=== PATIENT | female | born 1940 | race Caucasian/White ===

== ENCOUNTER → 2018-07-07 | Outpatient (REF) | payer MEDICARE ==
[2018-07-07 12:25] LABS: APPEARANCE, URINE CLEAR (CLEAR); BACTERIA, URINE AUTO 1+ (NEGATIVE); BILIRUBIN, URINE AUTO NEGATIVE (NEGATIVE); BLOOD, URINE BLOOD 2+ (NEGATIVE); COLOR, URINE YELLOW (YELLOW); GLUCOSE, URINE (UA) AUTO NEGATIVE (NEGATIVE); KETONE, URINE AUTO NEGATIVE (NEGATIVE); LEUKOCYTE ESTERASE, URINE AUTO 3+ (NEGATIVE); NITRITE, URINE AUTO NEGATIVE (NEGATIVE); PROTEIN, URINE AUTO NEGATIVE (NEGATIVE); RBC, URINE AUTO 19 /HPF (0-3); SPECIFIC GRAVITY URINE AUTO 1.008 (1.002-1.035); SQUAMOUS EPITHELIAL CELL UR AU 0 /HPF (0-6); UROBILINOGEN, URINE AUTO 0.2 mg/dL (0.0-2.0); WBC, URINE AUTO 32 /HPF (0-3)
== END ==
LOC: M SMT 11:44
DX: N39.0 Urinary tract infection, site not specified (principal)
CPT/HCPCS: 81001

== ENCOUNTER → 2018-07-11 | Outpatient (REF) | payer MEDICARE ==
[2018-07-11 13:25] LABS: APPEARANCE, URINE HAZY (CLEAR); BACTERIA, URINE AUTO NEGATIVE (NEGATIVE); BILIRUBIN, URINE AUTO NEGATIVE (NEGATIVE); BLOOD, URINE BLOOD 1+ (NEGATIVE); COLOR, URINE YELLOW (YELLOW); GLUCOSE, URINE (UA) AUTO NEGATIVE (NEGATIVE); KETONE, URINE AUTO NEGATIVE (NEGATIVE); LEUKOCYTE ESTERASE, URINE AUTO 2+ (NEGATIVE); NITRITE, URINE AUTO NEGATIVE (NEGATIVE); PROTEIN, URINE AUTO NEGATIVE (NEGATIVE); RBC, URINE AUTO 6 /HPF (0-3); SPECIFIC GRAVITY URINE AUTO 1.006 (1.002-1.035); SQUAMOUS EPITHELIAL CELL UR AU 0 /HPF (0-6); UROBILINOGEN, URINE AUTO 0.2 mg/dL (0.0-2.0); WBC, URINE AUTO 38 /HPF (0-3)
== END ==
LOC: M SMT 12:58
DX: N39.0 Urinary tract infection, site not specified (principal)
CPT/HCPCS: 81001

== ENCOUNTER → 2020-12-18 | Outpatient (CLI) | payer MEDICARE ==
--- NOTE | 2020-12-18 15:23 | REP ---
INDICATION: POSTERIOR KNEE SWELLING COMPARISON: None. TECHNIQUE: Real time compression and duplex Doppler interrogation of the right lower extremity deep venous system is performed. FINDINGS: The right common femoral, superficial femoral and popliteal veins are fully compressible with transducer pressure and demonstrate normal spontaneous and phasic flow, without evidence of deep venous thrombosis. There is a cyst in the medial popliteal fossa measuring 6.0 x 1.7 x 2.5 cm. IMPRESSION: No evidence of deep venous thrombosis of the right lower extremity femoral popliteal venous system. There is a cyst in the medial popliteal fossa measuring 6.0 x 1.7 x 2.5 cm. <Electronically signed by Timoteo Bhatt > 12/18/20 [id number]
== END ==
LOC: M RAD 14:45
PROVIDERS: ATTEND Physician Assistant Medical
DX: M71.22 Synovial cyst of popliteal space [Baker], left knee (principal); M25.462 Effusion, left knee; M79.89 Other specified soft tissue disorders

== ENCOUNTER 2021-05-31 17:05 | Inpatient (IN) | payer MEDICARE ==
[~2021-05-31] VITALS: Ht 165.1 cm; Wt 65.3 kg
[2021-05-31] MEDS ORDERED: MORPHINE 2 MG/ML 1ML VIAL (J2270) IV ONE (17:15)
[2021-05-31] MEDS ORDERED: ONDANSETRON 4MG/2ML VIAL IV ONE (17:15)
[2021-05-31] MEDS ORDERED: BOOSTRIX/ADACEL VACCINE (DIPHTH/PERTUSS/ACELL/TETANUS) 0.5ML SYR IM ONE (17:20)
[2021-05-31] MEDS ORDERED: MORPHINE 4 MG/ML 1ML VIAL/SYRINGE (J2270) IV ONE (18:05)
[2021-05-31 18:20] LABS: BASO % 0.3 % (0.0-1.0); EOS # 0.1 10^3/uL (0.0-0.5); EOS % 1.2 % (0.0-3.0); HEMATOCRIT 43.8 % (36.0-47.0); HEMOGLOBIN 14.1 g/dl (12.0-15.5); LYMPH # 1.2 10^3/uL (1.5-5.0); LYMPH % 9.8 % (24.0-44.0); MEAN CORPUSCULAR HEMOGLOBIN 29.6 pg (27.0-33.0); MEAN CORPUSCULAR HGB CONC 32.2 g/dl (32.0-36.5); MEAN CORPUSCULAR VOLUME 91.8 fl (80.0-96.0); MONO # 0.5 10^3/uL (0.0-0.8); MONO % 4.6 % (2.0-8.0); NEUTROPHILS # 9.9 10^3/uL (1.5-8.5); NEUTROPHILS % 83.6 % (36.0-66.0); PLATELET COUNT, AUTOMATED 234 10^3/uL (150-450); RED BLOOD COUNT 4.77 10^6/uL (4.00-5.40); WHITE BLOOD COUNT 11.8 10^3/uL (4.0-10.0)
[2021-05-31 18:36] LABS: INR 0.82; PROTHROMBIN TIME 11.7 SECONDS (12.7-14.5)
[2021-05-31 18:37] LABS: PARTIAL THROMBOPLASTIN TIME 27.1 SECONDS (25.9-37.0)
[2021-05-31 18:46] LABS: ALBUMIN 3.7 GM/DL (3.2-5.2); ALT/SGPT 22 U/L (12-78); BILIRUBIN,DIRECT < 0.1 MG/DL (0.0-0.2); BILIRUBIN,TOTAL 0.2 MG/DL (0.2-1.0); BLOOD UREA NITROGEN 19 MG/DL (7-18); CALCIUM LEVEL 8.8 MG/DL (8.8-10.2); CARBON DIOXIDE LEVEL 31 MEQ/L (21-32); CHLORIDE LEVEL 103 MEQ/L (98-107); CREATININE FOR GFR 0.86 MG/DL (0.55-1.30); GLOMERULAR FILTRATION RATE > 60.0 (>39); GLUCOSE, FASTING 117 MG/DL (70-100); POTASSIUM SERUM 3.9 MEQ/L (3.5-5.1); SODIUM LEVEL 140 MEQ/L (136-145); TOTAL PROTEIN 7.1 GM/DL (6.4-8.2)
--- NOTE | 2021-05-31 18:46 | REPVR ---
PROCEDURE INFORMATION: Exam: XR Chest Exam date and time: 05/31/2021 5:56 PM Age: 80 years old Clinical indication: Other: Fall TECHNIQUE: Imaging protocol: XR of the chest. Views: 1 view. COMPARISON: CR Chest, 2 view PA, Lat 12/04/2014 9:54 AM FINDINGS: Lungs: The lungs are unchanged. There are no interval infiltrates. Pleural spaces: Unremarkable. No pleural effusion. No pneumothorax. Heart/Mediastinum: The heart and mediastinum are unchanged. Bones/joints: Unremarkable. IMPRESSION: Negative chest without change from 12/04/2014. Electronically signed by: Jeff Sims On 05/31/2021 18:46:08 PM
--- NOTE | 2021-05-31 18:50 | REPVR ---
PROCEDURE INFORMATION: Exam: XR Right Hip Exam date and time: 05/31/2021 5:56 PM Age: 80 years old Clinical indication: Other: Right hip pain; Additional info: Fall; Right hip pain TECHNIQUE: Imaging protocol: XR Right hip. Views: 2 or 3 views hip with pelvis when performed. COMPARISON: No relevant prior studies available. FINDINGS: Bones/joints: Oblique subtrochanteric fracture of the proximal right femur with a fracture line extending from the cephalad aspect of the lesser trochanter extending laterally and obliquely toward the proximal femoral diaphysis. There is medial displacement of the distal fragment approximately 1/3 the width of the bone and mild varus angulation. The bony ring of the pelvis is intact. Mild degenerative disc narrowing and spurring is noted in the lower lumbar spine. Soft tissues: Unremarkable. IMPRESSION: 1. Oblique subtrochanteric fracture of the right hip with mild displacement and varus angulation. 2. 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 3. Negative pelvis. Electronically signed by: Jeff Sims On 05/31/2021 18:50:53 PM
[2021-05-31 19:29] LABS: RSV AMPLIFICATION NEGATIVE (NEGATIVE)
--- NOTE | 2021-05-31 19:51 | REPVR ---
PROCEDURE INFORMATION: Exam: XR Right Femur Exam date and time: 05/31/2021 7:27 PM Age: 80 years old Clinical indication: Pain; Hip; Right; Additional info: R hip #, assess distal femur for preop planning TECHNIQUE: Imaging protocol: XR Right femur. Views: 2 views. COMPARISON: CR Hip,AP,LAT to include Pelvis 05/31/2021 5:11 PM FINDINGS: Bones/joints: Joint space narrowing of the knee. The proximal femur is not included. No fractures in the mid and distal femur. Soft tissues: Unremarkable. IMPRESSION: 1. Negative mid and distal femur. The proximal femur is not included. 2. Mild degenerative narrowing of the right knee. Electronically signed by: Jeff Sims On 05/31/2021 19:51:20 PM
[2021-05-31] MEDS ORDERED: MORPHINE 4 MG/ML 1ML VIAL/SYRINGE (J2270) IV PRN (19:55)
[2021-05-31] MEDS ORDERED: ONDANSETRON 4MG/2ML VIAL IV PRN (20:00)
--- NOTE | 2021-05-31 20:00 | HPEPDOC ---
[facility] Medical History & Physical Date of Admission May 31, 2021 Date of Service: May 31, 2021 Primary Care Physician: CHRISTINE ARREOLA M.D. Attending Physician: TALIB DUQUE MD History and Physical CHIEF COMPLAINT: [ hip pain] HISTORY OF PRESENT ILLNESS: [This is a 80 y/o female with no significant pmh who presents to our ED on 05/31 with after suffering a fall and subsequently dev eloping severe right hip pain and inability to ambulate. Patient states that she was on her way out to the barn to tend to her animals, but when she tried to open her barn door, she happened to lose her grasp on the rope attached to the door and slipped and fell onto her bottom on the wet ground. Patient immediately began to experience pain after this and was brought to the ER. As of my exam, patient tells me that her pain is well controlled after a few doses of pain meds and with not moving her right leg. Patient, at the time of my exam, denies any recent illness, fevers, chills, chest pain, dyspnea, cough, abd pain, striking her head, syncope, abd pain, n/v/d/c, pedal edema. Patient found to have acute fracture of proximal right femur on imaging in the ED] PAST MEDICAL HISTORY: 1. [Reviewed - none PAST SURGICAL HISTORY: 1. [Reviewed - none SOCIAL HISTORY: Tobacco use:[Denies] ETOH: [Denies] Illicit drug use: [Denies] FAMILY HISTORY: Reviewed - none pertinent ALLERGIES: Please see below. REVIEW OF SYSTEMS: CONSTITUTIONAL: [Denies fevers, chills]. HEENT: [Denies uri type sx]. CARDIOVASCULAR: [Denies chest pain, palpitations]. RESPIRATORY: [Denies sob, wheezing]. GASTROINTESTINAL: [Denies abd pain, n/v/d/c]. GENITOURINARY: [Mouna dysuria]. SKIN: [Denies rash]. MUSCULOSKELETAL: [See HPI]. NEUROLOGICAL: [Denies syncope, paresthesias]. ENDOCRINE: [Denies hx of DM]. HEMATOLOGIC/LYMPHATIC: [Denies hx of vte]. HOME MEDICATIONS: Please see below. PHYSICAL EXAMINATION: VITAL SIGNS: Please see below. GENERAL APPEARANCE: [This is a pleasant 80 y/o female who is alert and oriented to all questioning. She does not appear to be in any acute distress]. HEENT: [No mass or lesion. EOMI. No scleral icterus. Nares patent. oral mucosa moist]. CARDIOVASCULAR: [Regular rate, rhythm. No murmurs, rubs, gallops]. LUNGS: [Good air flow b/l. No wheezing, rales, rhonchi]. ABDOMEN: [Soft, nontender]. MUSCULOSKELETAL: [No joint deformity noted. Hip ROM not assessed d/t pain]. EXTREMITIES: [No pedal edema appreciated. No overlying skin changes. Pulses intact]. NEUROLOGICAL: [Sensation intact. Speech clear. A+Ox3. No focal deficits]. PSYCHIATRIC: [Mood and affect appear appropriate]. LABORATORY DATA: See below. IMAGING: [CXR: FINDINGS: Lungs: The lungs are unchanged. There are no interval infiltrates. Pleural spaces: Unremarkable. No pleural effusion. No pneumothorax. Heart/Mediastinum: The heart and mediastinum are unchanged. Bones/joints: Unremarkable. IMPRESSION: Negative chest without change from 12/04/2014. Hip/pelvis XR: FINDINGS: Bones/joints: Oblique subtrochanteric fracture of the proximal right femur with a fracture line extending from the cephalad aspect of the lesser trochanter extending laterally and obliquely toward the proximal femoral diaphysis. There is medial displacement of the distal fragment approximately 1/3 the width of the bone and mild varus angulation. The bony ring of the pelvis is intact. Mild degenerative disc narrowing and spurring is noted in the lower lumbar spine. Soft tissues: Unremarkable. IMPRESSION: 1. Oblique subtrochanteric fracture of the right hip with mild displacement and varus angulation. 2. 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 3. Negative pelvis. Femur XR: FINDINGS: Bones/joints: Joint space narrowing of the knee. The proximal femur is not included. No fractures in the mid and distal femur. Soft tissues: Unremarkable. IMPRESSION: 1. Negative mid and distal femur. The proximal femur is not included. 2. Mild degenerative narrowing of the right knee. ] MICROBIOLOGY: Please see below. ASSESSMENT: [This is a 80 y/o female with no significant pmh who presents to our ED on 05/31 with after suffering a fall that was mechanical in nature and subsequently developing severe right hip pain and inability to ambulate. Patient found to have acute fracture of proximal right femur on imaging in the ED]. . PLAN: 1. [Right hip fx - Dr. Kennedy, orthopedics, has been consulted by ED provider and plans to take patient to OR in the am - NPO after midnight - will give ivf starting at this time - Pain control with toradol, morphine - nausea control with zofran - Bedrest - Admit to med surg for tx DVT prophylaxis - mechanical pre-op]. Vital Signs Vital Signs Date Time Temp Pulse Resp B/P (MAP) Pulse Ox O2 Delivery O2 Flow Rate FiO2 05/31/21 18:14 18 98 Room Air 05/31/21 18:05 53 05/31/21 18:03 213/84 (127) 05/31/21 17:33 98.3 Laboratory Data Labs 24H Laboratory Tests 2 05/31/21 18:08: Immature Granulocyte % (Auto) 0.5, Neutrophils (%) (Auto) 83.6H, Lymphocytes (%) (Auto) 9.8L, Monocytes (%) (Auto) 4.6, Eosinophils (%) (Auto) 1.2, Basophils (%) (Auto) 0.3, Neutrophils # (Auto) 9.9H, Lymphocytes # (Auto) 1.2L, Monocytes # (Auto) 0.5, Eosinophils # (Auto) 0.1, Basophils # (Auto) 0.0, Nucleated Red Blood Cells % (auto) 0.0, Prothrombin Time 11.7L, Prothromb Time International Ratio 0.82, Activated Partial Thromboplast Time 27.1, Anion Gap 6L, Glomerular Filtration Rate > 60.0, Calcium Level 8.8, Total Bilirubin 0.2, Direct Bilirubin < 0.1, Aspartate Amino Transf (AST/SGOT) 18, Alanine Aminotransferase (ALT/SGPT) 22, Alkaline Phosphatase 74, Total Protein 7.1, Albumin 3.7, Albumin/Globulin Ratio 1.1L, Coronavirus (COVID-19)(PCR) NEGATIVE, Influenza Type A (RT-PCR) NEGATIVE, Influenza Type B (RT-PCR) NEGATIVE, Respiratory Syncytial Virus (PCR) NEGATIVE CBC/BMP Laboratory Tests 05/31/21 18:08 Home Medications Scheduled Ascorbic Acid (Vitamin C) 1,000 Mg Tablet, 1,000 MG PO DAILY Calcium Carbonate (Calcium) 500 Mg Tablet, 500 MG PO DAILY Cholecalciferol (Vitamin D3) (Vitamin D3) 25 Mcg Capsule, 25 MCG PO DAILY Ubidecarenone (Co Q-10) 100 Mg Capsule, 100 MG PO DAILY Vitamin E (Dl,Tocopheryl Acet) (Vitamin E) 22.5 Mg/1 Ml Drops, 22.5 MG PO DAILY Allergies Coded Allergies: No Known Allergies (Unverified , 12/07/14) A-FIB/CHADSVASC A-FIB History Current/History of A-Fib/PAF?: No BAIRON MORATAYA May 31, 2021 20:00 TALIB DUQUE MD Jun 03, 2021 01:02
[2021-05-31] MEDS ORDERED: D3 H10002 PO (20:06)
[2021-05-31] MEDS ORDERED: COQ1100C5 PO (20:06)
[2021-05-31] MEDS ORDERED: ASCO100013 PO (20:06)
[2021-05-31] MEDS ORDERED: OYST1TAB PO (20:06)
[2021-05-31] MEDS ORDERED: [UNRECOGNIZED DRUG - CODE] PO (20:06)
[2021-05-31] MEDS ORDERED: HOME MED LIST COMPLETE! XX SCH (20:10)
[2021-05-31] MEDS: KETOROLAC 30 MG/ML 1ML VIAL IV PRN (20:36)
[2021-05-31 22:00] VITALS: BP 147/63
[2021-06-01] MEDS: NS 1,000 ML IV SCH ×2 (00:16→10:24)
[2021-06-01] MEDS: KETOROLAC 30 MG/ML 1ML VIAL IV PRN (05:42)
[2021-06-01 06:00] VITALS: BP 145/61
[2021-06-01 08:28] LABS: HEMATOCRIT 36.8 % (36.0-47.0); MEAN CORPUSCULAR HEMOGLOBIN 29.2 pg (27.0-33.0); MEAN CORPUSCULAR HGB CONC 31.8 g/dl (32.0-36.5); MEAN CORPUSCULAR VOLUME 91.8 fl (80.0-96.0); PLATELET COUNT, AUTOMATED 167 10^3/uL (150-450); RED BLOOD COUNT 4.01 10^6/uL (4.00-5.40); WHITE BLOOD COUNT 7.8 10^3/uL (4.0-10.0)
[2021-06-01 08:30] LABS: HEMOGLOBIN 11.7 g/dl (12.0-15.5)
[2021-06-01 08:51] LABS: BLOOD UREA NITROGEN 21 MG/DL (7-18); CALCIUM LEVEL 8.1 MG/DL (8.8-10.2); CARBON DIOXIDE LEVEL 28 MEQ/L (21-32); CHLORIDE LEVEL 107 MEQ/L (98-107); CREATININE FOR GFR 0.79 MG/DL (0.55-1.30); GLOMERULAR FILTRATION RATE > 60.0 (>39); GLUCOSE, FASTING 105 MG/DL (70-100); POTASSIUM SERUM 4.2 MEQ/L (3.5-5.1); SODIUM LEVEL 141 MEQ/L (136-145)
[2021-06-01] MEDS ORDERED: KETOROLAC 30 MG/ML 1ML VIAL IV PRN (09:50)
[2021-06-01] MEDS ORDERED: HEPARIN SOD (PORCINE) 5000UNITS/ML 1ML VIAL/SYRINGE SQ SCH (14:00)
--- NOTE | 2021-06-01 17:09 | ECGEPIP ---
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
--- NOTE | 2021-06-01 17:44 | CR.PDOC ---
General Date of Consultation: Jun 01, 2021 Consultation REASON FOR CONSULTATION/CHIEF COMPLAINT: Right hip CHIEF COMPLAINT: 80 y/o F presents to the ED after a fall, c/o right hip pain History gleaned from admission H&P as well as speaking with the patient HISTORY OF PRESENT ILLNESS: This is a 80 y/o female with no significant pmh who presents to our ED on 05/31 with after suffering a fall and subsequently developing severe right hip pain and inability to ambulate. Patient was opening a barn door when the rope broke and she fell onto her side quite heavily. patient immediately began to experience pain after this and was brought to the ER. Patient found to have acute fracture of proximal right femur on imaging in the ED PAST MEDICAL HISTORY: 1. [Reviewed - none PAST SURGICAL HISTORY: 1. [Reviewed - none SOCIAL HISTORY: Tobacco use:[Denies] ETOH: [Denies] Illicit drug use: [Denies] FAMILY HISTORY: Reviewed - none pertinent ALLERGIES: Please see below. REVIEW OF SYSTEMS: Patient denies any issues aside from those mentioned in the H&P HOME MEDICATIONS: Please see below. PHYSICAL EXAMINATION: VITAL SIGNS: Please see below. GENERAL APPEARANCE: Alert and oriented no acute distress CARDIOVASCULAR: Palpable posterior tibial pulse on the right EXTREMITIES: Right leg shortened and externally rotated. NEUROLOGICAL: Sensation grossly intact to all distributions right foot and ankle LABORATORY DATA: See below. X-ray: X-ray imaging was independently reviewed by myself today. This demonstrated an oblique subtrochanteric fracture to the right proximal femur with displacement. ASSESSMENT: Relatively healthy 80-year-old female with right hip fracture secondary to traumatic fall. Patient has been consented for open reduction internal fixation with the risks and benefits being documented and discussed with the patient. Plan for open reduction internal fixation today if possible. Patient is n.p.o. Vital Signs/I&O Vital Signs Date Time Temp Pulse Resp B/P (MAP) Pulse Ox O2 Delivery O2 Flow Rate FiO2 06/01/21 06:00 98.3 76 19 145/61 (89) 96 Room Air I&O- Last 24 Hours up to 6 AM 06/01/21 06:00 Intake Total 120 ml Output Total 200 ml Balance -80 ml Laboratory Data Labs 24H Laboratory Tests 2 05/31/21 18:08: Immature Granulocyte % (Auto) 0.5, Neutrophils (%) (Auto) 83.6H, Lymphocytes (%) (Auto) 9.8L, Monocytes (%) (Auto) 4.6, Eosinophils (%) (Auto) 1.2, Basophils (%) (Auto) 0.3, Neutrophils # (Auto) 9.9H, Lymphocytes # (Auto) 1.2L, Monocytes # (Auto) 0.5, Eosinophils # (Auto) 0.1, Basophils # (Auto) 0.0, Nucleated Red Blood Cells % (auto) 0.0, Prothrombin Time 11.7L, Prothromb Time International Ratio 0.82, Activated Partial Thromboplast Time 27.1, Anion Gap 6L, Glomerular Filtration Rate > 60.0, Calcium Level 8.8, Total Bilirubin 0.2, Direct Bilirubin < 0.1, Aspartate Amino Transf (AST/SGOT) 18, Alanine Aminotransferase (ALT/SGPT) 22, Alkaline Phosphatase 74, Total Protein 7.1, Albumin 3.7, Albumin/Globulin Ratio 1.1L, Coronavirus (COVID-19)(PCR) NEGATIVE, Influenza Type A (RT-PCR) NEGATIVE, Influenza Type B (RT-PCR) NEGATIVE, Respiratory S yncytial Virus (PCR) NEGATIVE 06/01/21 07:57: Nucleated Red Blood Cells % (auto) 0.0, Anion Gap 6L, Glomerular Filtration Rate > 60.0, Calcium Level 8.1L CBC/BMP Laboratory Tests 05/31/21 18:08 06/01/21 07:57 Allergies Coded Allergies: No Known Allergies (Unverified , 12/07/14) Home Medications Scheduled Ascorbic Acid (Vitamin C) 1,000 Mg Tablet, 1,000 MG PO DAILY, (Reported) Calcium Carbonate (Calcium) 500 Mg Tablet, 500 MG PO DAILY, (Reported) Cholecalciferol (Vitamin D3) (Vitamin D3) 25 Mcg Capsule, 25 MCG PO DAILY, (Reported) Ubidecarenone (Co Q-10) 100 Mg Capsule, 100 MG PO DAILY, (Reported) Vitamin E (Dl,Tocopheryl Acet) (Vitamin E) 22.5 Mg/1 Ml Drops, 22.5 MG PO DAILY, (Reported) NORTH SIFUENTES MD Jun 01, 2021 17:43
[2021-06-01] MEDS ORDERED: ACETAMINOPHEN TAB 650MG DOSE (2X325MG) PO ONE (18:10)
[2021-06-01 18:56] VITALS: BP 169/74
[2021-06-01] MEDS ORDERED: TRANEXAMIC ACID 100 MG/ML 10ML VIAL As Ordered ONE (20:06)
[2021-06-01] MEDS ORDERED: BUPIVACAINE/EPIN 0.5% 30 ML VIAL As Ordered ONE (20:06)
[2021-06-01] MEDS ORDERED: propofoL 200 MG/20 ML VIAL As Ordered ONE (20:09)
[2021-06-01] MEDS ORDERED: KETAMINE HCL 200 MG/20 ML VIAL As Ordered ONE (20:09)
[2021-06-01] MEDS ORDERED: LIDOCAINE 2% 100MG/5ML SDV (FOR ANES.) As Ordered ONE (20:09)
[2021-06-01] MEDS ORDERED: ONDANSETRON 4MG/2ML VIAL As Ordered ONE (20:09)
[2021-06-01] MEDS ORDERED: MIDAZOLAM INJ 2MG/2ML VIAL (J2250 PER 1MG) As Ordered ONE (20:13)
[2021-06-01] MEDS ORDERED: fentaNYL 100 MCG/2 ML INJECTION (J3010) As Ordered ONE (20:14)
[2021-06-01] MEDS ORDERED: ceFAZolin 1GM VIAL (J0690 PER 500MG) As Ordered ONE (20:39)
[2021-06-01] MEDS ORDERED: PHENYLephrine 500MCG 5ML (100MCG/ML) SYRINGE As Ordered ONE (20:55)
[2021-06-01] MEDS ORDERED: ACETAMINOPHEN 1000MG 100ML IV BTL (OFIRMEV) (J0131 PER 10MG) As Ordered ONE (21:04)
[2021-06-01] MEDS ORDERED: ePHEDrine SULFATE 25 MG/5 ML(5MG/ML) SYRINGE As Ordered ONE (21:05)
[2021-06-01] MEDS ORDERED: PERCOCET 5MG/325MG TAB PO PRN (23:00)
[2021-06-01] MEDS ORDERED: LR 1,000 ML IV SCH (23:00)
[2021-06-01] MEDS ORDERED: ONDANSETRON 4MG/2ML VIAL IV PRN (23:00)
[2021-06-01] MEDS ORDERED: fentaNYL 100 MCG/2 ML INJECTION (J3010) IV PRN (23:00)
[2021-06-01] MEDS ORDERED: METOCLOPRAMIDE INJ 10MG/2ML VIAL (J2765 PER 1) IV PRN (23:00)
[2021-06-02] VITALS (8 sets, daily range): BP systolic 121–152; BP diastolic 55–74
[2021-06-02] MEDS ORDERED: SENNA 8.6 MG TAB (SENOKOT) PO PRN (00:15)
[2021-06-02] MEDS ORDERED: oxyCODONE 5MG TAB PO PRN ×2 (00:15→00:20)
[2021-06-02] MEDS ORDERED: traMADol 50 MG TAB PO PRN (00:20)
[2021-06-02] MEDS ORDERED: ONDANSETRON 4MG/2ML VIAL IV PRN (00:25)
[2021-06-02] MEDS: LR 1,000 ML IV SCH ×3 (00:34→20:00)
--- NOTE | 2021-06-02 01:18 | ROOPDOC ---
[facility] Report Of Operation Report of Operation DATE OF PROCEDURE: 06/02/21 PREPROCEDURE DIAGNOSES: Right hip oblique subtrochanteric fracture POSTPROCEDURE DIAGNOSES: As above PROCEDURE PERFORMED: Open reduction internal fixation left hip utilizing short IM nail SURGEON: North Sifuentes MD MANAGER STORAGE: Alirio Noriega MD Schott, Lisa, ABHIJEET ICD 10 modifier 80: A second surgeon was utilized during this procedure to help maintain the reduction of the fracture during guidewire placement, reaming and placement of the final prosthetic hardware intramedullary nail ANESTHESIA: Spinal. ESTIMATED BLOOD LOSS: Approximately less than 70 mL. COMPLICATIONS: No known complication REMARKS: Patient was seen in the preoperative area and the right lower extremity was marked FINDINGS: There was proximal comminution of the greater trochanteric fragment with difficulty meeting the reduction of this fragment. SPECIMENS REMOVED: None PROCEDURE NOTE: The patient was brought to the operating room and a surgical pause was carried out. The patient underwent a spinal anesthetic on her bed and then was transferred to the Guitar top fracture table. She was placed appropriately in the leg traction chavarria and boot with appropriate padding for her right lower extremity. The left lower extremity was placed in the well-leg chavarria with appropriate padding. She was secured to the Guitar top table with straps and tape position as well. The patient underwent a standard sterile prep and drape of the left lower extremity. X-ray imaging was utilized to lion the anatomic surfaces on the skin for the incision. A small incision was made and the ball spike chavarria was utilized to hold the greater trochanteric subtrochanteric extension fragment in position during preparation as described below Utilizing fluoroscopy, a proximal incision was made down to the skin and subcutaneous tissue and down to the fascia. The T-handle awl was then placed at the junction of the anterior two thirds of the greater trochanter. This was advanced. Due to some comminution the awl was abandoned and the guidewire pin was utilized. Position was checked on AP and lateral imaging with fluoroscopy. the opening reamer was utilized to open up the proximal portion of the greater trochanteric region. Position was checked on AP and lateral fluoroscopy. The guidewire was then advanced to the distal portion of the femur. He was unable to be advanced any further. This was proximal to the physeal scar. It was noted that the guidewire was following the medial cortex more so. The guidewire was attempted to be repassed more centrally however I believe that the proximal comminution was causing the entry point to be a little bit more lateral in this led to the medial path of the guide. This was excepted. Reaming then proceeded from 9 up to 12 mm. A measured long IM nail was selected. This was advanced un bryan fluoroscopic guidance utilizing AP and lateral imaging. Once the appropriate position of the cephalomedullary screw position was appropriate. The cephalomedullary screw drill guide and wire guide was placed through the guide handle. An incision was made at the appropriate border for the skin and fascia beneath that. This was advanced and secured adjacent to the bone. Using AP and lateral fluoroscopy the guidewire was advanced. Once this was appropriately placed, it was overreamed and a cephalo medullary screw distance was measured. This was then advanced under fluoroscopy until it was in appropriate position center and center of the head. The proximal sliding screw was placed and tightened. Position was confirmed with fluoroscopy . the guides were removed. Lateral fluoroscopy was then utilized to get perfect circles to place 1 distal screw in the oblong hole. This is done utilizing the fluoroscopy and marking the position and then a small skin incision with drilling, measurement for the screw placement and then placement of the distal screw through the oblong hole. A 50 mm screw was used Final position of the prosthesis was checked with AP and lateral fluoroscopy. The wounds were irrigated out with normal sterile saline. The fascia was closed with #1 Vicryl. The superficial subcutaneous tissue was posed with 2.0 Vicryl followed by skin closure with three-point 0 Monocryl. Steri-Strips were applied followed by Telfa and Tegaderm dressings. The patient's anesthetic was reversed. They were transferred to the bed without incident and taken to recovery room stable with no known complications The patient will be 50 percent weightbearing. NORTH SIFUENTES MD Jun 02, 2021 01:18
[2021-06-02] MEDS: ACETAMINOPHEN TAB 650MG DOSE (2X325MG) PO SCH ×3 (05:28→17:58)
[2021-06-02] MEDS: ceFAZolin SOD 1 GM in D5W MINI-BAG PLUS 50 ML IV SCH ×4 (05:29→13:26)
[2021-06-02 06:07] LABS: HEMATOCRIT 31.4 % (36.0-47.0); MEAN CORPUSCULAR HEMOGLOBIN 29.7 pg (27.0-33.0); MEAN CORPUSCULAR HGB CONC 31.8 g/dl (32.0-36.5); MEAN CORPUSCULAR VOLUME 93.2 fl (80.0-96.0); PLATELET COUNT, AUTOMATED 124 10^3/uL (150-450); RED BLOOD COUNT 3.37 10^6/uL (4.00-5.40)
[2021-06-02 06:14] LABS: BLOOD UREA NITROGEN 12 MG/DL (7-18); CALCIUM LEVEL 7.9 MG/DL (8.8-10.2); CARBON DIOXIDE LEVEL 30 MEQ/L (21-32); CHLORIDE LEVEL 107 MEQ/L (98-107); CREATININE FOR GFR 0.58 MG/DL (0.55-1.30); GLOMERULAR FILTRATION RATE > 60.0 (>39); GLUCOSE, FASTING 121 MG/DL (70-100); PHOSPHORUS LEVEL 2.4 MG/DL (2.5-4.9); POTASSIUM SERUM 4.1 MEQ/L (3.5-5.1); SODIUM LEVEL 140 MEQ/L (136-145)
--- NOTE | 2021-06-02 08:20 | REP ---
INDICATION: POST OP IN PACU, DR ORDERED AP/LAT OF R FEMUR COMPARISON: 05/31/2021. TECHNIQUE: AP and lateral right femur. FINDINGS: There is placement of an intramedullary meeta and screws in the femur for an intertrochanteric fracture of the proximal right femur. There is lateral displacement of the greater trochanter. IMPRESSION: Placement of metallic internal fixation for an intertrochanteric fracture of the proximal right femur. <Electronically signed by Timoteo Bhatt > 06/02/21 [id number]
--- NOTE | 2021-06-02 08:26 | REP ---
INDICATION: IM NAIL IN OR. COMPARISON: 05/31/2021. TECHNIQUE: Six C-arm views right femur. FINDINGS: There is placement of metallic internal fixation in the right femur for intertrochanteric fracture of the proximal right femur. There is mild lateral displacement of the greater trochanter. IMPRESSION: 209 seconds fluoroscopy time utilized. <Electronically signed by Timoteo Bhatt > 06/02/21 [id number]
[2021-06-02] MEDS ORDERED: NAPROXEN 250 MG TAB PO SCH (09:00)
[2021-06-02] MEDS: ASPIRIN 81MG ENTERIC TABLET PO SCH ×2 (09:31→20:37)
[2021-06-02] MEDS: ASCORBIC ACID 500 MG TAB PO SCH (09:31)
[2021-06-02] MEDS: FERROUS SULFATE 325MG TAB PO SCH (09:31)
[2021-06-02] MEDS: DOCUSATE SODIUM 100MG CAPSULE PO SCH ×2 (09:31→20:37)
--- NOTE | 2021-06-02 10:11 | IPNPDOC ---
Subjective Date Seen The patient was seen on 06/02/21. Subjective Chief Complaint/HPI Patient was seen and examined at bedside this morning. She is postoperative day 1 and reports her pain is well controlled. She had no chest pain, palpitations, abdominal pain, nausea, problems with urination and bowel movements. She was explained plan of physical therapy working with her today which she was in agreement with which would also help us determine an appropriate disposition. Objective Physical Examination Other physical findings General: Lying in bed, no acute distress Head/Neck/Throat: Trachea midline, mucous membranes moist Eyes: Sclera anicteric, no erythema or discharge is appreciated bilaterally Thorax: Normal respiratory effort on room air, lungs clear to auscultation bilaterally, no wheezes/rales/rhonchi Cardiovascular: Normal rate, regular rhythm, normal S1, S2; no S3, S4, rubs/gallops/murmurs Abdomen: Bowel sounds present, soft/nontender/nondistended Genitourinary: No CVA tenderness, no Garcia in place Musculoskeletal: She is able to move the right leg but complains of some pain which is tolerable. Skin: Warm, dry. Wound dressing was dry, intact and no soaking was appreciated. Neurologic: AAOx3, speech fluent and goal-directed, no focal deficits, grossly i ntact Assessment /Plan Assessment #Mechanical fall -POD#1 open reduction internal fixation of left hip utilizing short IM nail -Pain is well controlled. -PT/OT today. -She will need to go home on aspirin twice daily and this was discussed with the orthopedics team. DVT prophylaxis -Heparin subcu Plan/VTE VTE Prophylaxis Ordered?: Yes VS, I&O, 24H, Maty Vital Signs/I&O Vital Signs Date Time Temp Pulse Resp B/P (MAP) Pulse Ox O2 Delivery O2 Flow Rate FiO2 06/02/21 06:00 98.5 78 19 134/61 (85) 94 Room Air I&O- Last 24 Hours up to 6 AM 06/02/21 06:00 Intake Total 2600 ml Output Total 1725 ml Balance 875 ml Laboratory Data 24H LABS Laboratory Tests 2 06/02/21 05:24: Nucleated Red Blood Cells % (auto) 0.0, Anion Gap 3L, Glomerular Filtration Rate > 60.0, Calcium Level 7.9L, Phosphorus Level 2.4L, Magnesium Level 2.0 CBC/BMP Laboratory Tests 06/02/21 05:24 BOB NASH M.D. Jun 02, 2021 10:11
[2021-06-02] MEDS ORDERED: K-PHOS ORIGINAL (POT.ACID PHOSPHATE) 500MG TAB PO ONE (11:00)
--- NOTE | 2021-06-02 18:35 | IPNPDOC ---
Text Note Date of Service The patient was seen on 06/02/21. NOTE Postop day 1 for right hip open reduction internal fixation with long IM nail Patient is sitting up at the bedside. She states that she has been able to transfer to the commode chair at the bedside. Her pain has been relatively well controlled. She denies any other significant complaints or concerns Patient is grossly neurovascular intact to right foot and ankle with palpable posterior tibial pulse and intact sensation to light touch. Dressings are intact to the incision sites with minimal staining and no soiling of the dressing. X-ray imaging of the right femur demonstrates the right IM nail in position with no obvious periprosthetic fracture aside from some comminution of the greater trochanter with some lateralization of the GT postop. Patient will mobilize with physical therapy 50% weightbearing. She will be evaluated for possible discharge home versus need for rehabilitation. VS,Fishbone, I+O VS, Fishbone, I+O Laboratory Tests 06/02/21 05:24 Vital Signs Date Time Temp Pulse Resp B/P (MAP) Pulse Ox O2 Delivery O2 Flow Rate FiO2 06/02/21 14:00 99.2 85 17 125/58 (80) 94 Room Air I&O- Last 24 Hours up to 6 AM 06/02/21 06:00 Intake Total 2600 ml Output Total 1725 ml Balance 875 ml NORTH SIFUENTES MD Jun 02, 2021 18:35
[2021-06-02] MEDS: HEPARIN SOD (PORCINE) 5000UNITS/ML 1ML VIAL/SYRINGE SQ SCH (20:38)
[2021-06-03 03:23] VITALS: BP 142/64
[2021-06-03] MEDS: ACETAMINOPHEN TAB 650MG DOSE (2X325MG) PO SCH ×3 (05:59→12:00)
[2021-06-03] MEDS: LR 1,000 ML IV SCH (06:00)
[2021-06-03] MEDS: HEPARIN SOD (PORCINE) 5000UNITS/ML 1ML VIAL/SYRINGE SQ SCH ×2 (06:00→14:00)
[2021-06-03 06:12] LABS: HEMOGLOBIN 9.1 g/dl (12.0-15.5); MEAN CORPUSCULAR HEMOGLOBIN 29.6 pg (27.0-33.0); MEAN CORPUSCULAR HGB CONC 32.5 g/dl (32.0-36.5); MEAN CORPUSCULAR VOLUME 91.2 fl (80.0-96.0); PLATELET COUNT, AUTOMATED 117 10^3/uL (150-450); RED BLOOD COUNT 3.07 10^6/uL (4.00-5.40); WHITE BLOOD COUNT 7.9 10^3/uL (4.0-10.0)
[2021-06-03 06:34] LABS: BLOOD UREA NITROGEN 12 MG/DL (7-18); CALCIUM LEVEL 8.3 MG/DL (8.8-10.2); CARBON DIOXIDE LEVEL 28 MEQ/L (21-32); CHLORIDE LEVEL 106 MEQ/L (98-107); CREATININE FOR GFR 0.52 MG/DL (0.55-1.30); GLOMERULAR FILTRATION RATE > 60.0 (>39); GLUCOSE, FASTING 98 MG/DL (70-100); MAGNESIUM LEVEL 2.2 MG/DL (1.8-2.4); PHOSPHORUS LEVEL 2.6 MG/DL (2.5-4.9); POTASSIUM SERUM 4.3 MEQ/L (3.5-5.1); SODIUM LEVEL 141 MEQ/L (136-145)
[2021-06-03] MEDS: DOCUSATE SODIUM 100MG CAPSULE PO SCH (08:43)
[2021-06-03] MEDS: ASCORBIC ACID 500 MG TAB PO SCH (08:44)
[2021-06-03] MEDS: FERROUS SULFATE 325MG TAB PO SCH (08:44)
[2021-06-03] MEDS: ASPIRIN 81MG ENTERIC TABLET PO SCH (08:44)
--- NOTE | 2021-06-03 12:56 | DS.PDOC ---
Discharge Summary General Date of Admission May 31, 2021 at 19:55 Date of Discharge 06/03/21 Discharge Summary DISCHARGE DIAGNOSES: 1. Fall 2. Fracture of right hip COMPLICATIONS/CHIEF COMPLAINT: Closed Right Hip Fracture. HOSPITAL COURSE: Ms. Welch, is a 80-year-old female who presented to the emergency room department suffering a fall and found to have a complete set up subtrochanteric fracture of the right hip with mild displacement and varus angulation. She was evaluated by the orthopedics team and underwent open reduction and internal fixation utilizing short IM nails on 06/02/2021. Patient was instructed that she will be 50% weightbearing. She worked with physical therapy and will be going home with appropriate equipment required including rolling walker and will be set up with home services. Of note, patient did have an episode of delirium but was back to her baseline mental status at the time of discharge. Although, she lives alone she will be staying with her son upon discharge. Patient was instructed to follow-up with her Dr. Navarro (orthopedics) upon discharge in 5 to 7 days. DVT prophylaxis was discussed with orthopedics team and it was rec ommended for her to go on aspirin 81 mg twice daily. Primary care follow-up for likely chronic issues: She was encouraged to follow-up with her primary care physician in order to be evaluated for osteoporosis with a DEXA scan. She was noted to be hypocalcemic therefore was encouraged to continue with vitamin D and calcium supplementations and is asked to follow-up with her primary care physician to have levels checked of note, she was also noted to have normocytic anemia during hospitalization. Her hemoglobin remained stable. She is to follow-up with her primary care physician to have further evaluation for anemia. DISCHARGE MEDICATIONS: Please see below. ALLERGIES: Please see below. PHYSICAL EXAMINATION ON DISCHARGE: VITAL SIGNS: Please see below. General: Lying in bed, no acute distress Head/Neck/Throat: Trachea midline, mucous membranes moist Eyes: Sclera anicteric, no erythema or discharge appreciated bilaterally Thorax: Normal respiratory effort on room air, lungs clear to auscultation bilaterally, no wheezes/rales/rhonchi Cardiovascular: Normal rate, regular rhythm, normal S1, S2; no S3, S4, rubs/gallops/murmurs Abdomen: Bowel sounds present, soft/nontender/nondistended Genitourinary: No CVA tenderness, no Garcia in place Musculoskeletal: Moving all extremities, no edema Skin: Warm, dry. Wrapping of surgical site was dry with no soaking appreciated Neurologic: AAOx3, speech fluent and goal-directed, no focal deficits, grossly intact LABORATORY DATA: Please see below. IMAGING: Hip,AP,LAT to include Pelvis RIGHT FINDINGS: Bones/joints: Oblique subtrochanteric fracture of the proximal right femur with a fracture line extending from the cephalad aspect of the lesser trochanter extending laterally and obliquely toward the proximal femoral diaphysis. There is medial displacement of the distal fragment approximately 1/3 the width of the bone and mild varus angulation. The bony ring of the pelvis is intact. Mild degenerative disc narrowing and spurring is noted in the lower lumbar spine. Soft tissues: Unremarkable. IMPRESSION: 1. Oblique subtrochanteric fracture of the right hip with mild displacement and varus angulation. 2. 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 3. Negative pelvis. PROGNOSIS: Good ACTIVITY: 50% weightbearing DIET: Regular diet DISCHARGE PLAN: Home with home services DISCHARGE INSTRUCTIONS: 1. Follow-up with primary care physician for above reason 2. Follow-up with orthopedic team Dr. Navarro in 5 to 7 days DISCHARGE CONDITION: Stable TIME SPENT ON DISCHARGE: 25 minutes. Vital Signs/I&Os Vital Signs Date Time Temp Pulse Resp B/P (MAP) Pulse Ox O2 Delivery O2 Flow Rate FiO2 06/03/21 03:23 98.3 72 20 142/64 (90) 96 Room Air I&O- Last 24 Hours up to 6 AM 06/03/21 06:00 Intake Total 1490 ml Output Total 600 ml Balance 890 ml Laboratory Data Labs 24H Laboratory Tests 2 06/03/21 06:00: Nucleated Red Blood Cells % (auto) 0.0, Anion Gap 7L, Glomerular Filtration Rate > 60.0, Calcium Level 8.3L, Phosphorus Level 2.6, Magnesium Level 2.2 CBC/BMP Laboratory Tests 06/03/21 06:00 Discharge Medications Scheduled Acetaminophen (Acetaminophen) 325 Mg Tablet, 650 MG PO Q6H Ascorbic Acid (Vitamin C) 1,000 Mg Tablet, 1,000 MG PO DAILY, (Reported) Aspirin (Aspirin EC) 81 Mg Tablet.dr, 81 MG PO BID Calcium Carbonate (Calcium) 500 Mg Tablet, 500 MG PO DAILY, (Reported) Cholecalciferol (Vitamin D3) (Vitamin D3) 25 Mcg Capsule, 25 MCG PO DAILY, (Reported) Ubidecarenone (Co Q-10) 100 Mg Capsule, 100 MG PO DAILY, (Reported) Vitamin E (Dl,Tocopheryl Acet) (Vitamin E) 22.5 Mg/1 Ml Drops, 22.5 MG PO DAILY, (Reported) Allergies Coded Allergies: No Known Allergies (Unverified , 12/07/14) BOB NASH M.D. Jun 03, 2021 12:53
[2021-06-03] MEDS ORDERED: ACET1TAB55 PO (12:57)
[2021-06-03] MEDS ORDERED: ASPI-551 PO (12:58)
--- NOTE | 2021-06-03 18:20 | IPNPDOC ---
Text Note Date of Service The patient was seen on 06/03/21. NOTE Postop day 2 for right hip open reduction internal fixation Unfortunately, the patient was discharged home prior to being seen on postop day 2. The patient had been doing quite well as per nursing and was mobilizing quite well. She will be seen for follow-up in the clinic within 2 weeks of surgery. VS,Fishbone, I+O VS, Fishbone, I+O Laboratory Tests 06/03/21 06:00 Vital Signs Date Time Temp Pulse Resp B/P (MAP) Pulse Ox O2 Delivery O2 Flow Rate FiO2 06/03/21 03:23 98.3 72 20 142/64 (90) 96 Room Air I&O- Last 24 Hours up to 6 AM 06/03/21 06:00 Intake Total 1490 ml Output Total 600 ml Balance 890 ml NORTH SIFUENTES MD Jun 03, 2021 18:20
== END 2021-06-03 14:35 | disposition home health service (06) | DRG 482 ==
LOC: M ED 17:05 → M ED INP 19:55 → M MS5PR 21:45
PROVIDERS: ADMIT Internal Medicine; ATTEND Internal Medicine
PROC: 0QS636Z Reposition Right Upper Femur with Intramedullary Internal Fixation Device, Percutaneous Approach (ICD-10-PCS; principal; 2021-06-02)
DX: S72.21XA Displaced subtrochanteric fracture of right femur, initial encounter for closed fracture (principal); Y93.K9 Activity, other involving animal care; W18.09XA Striking against other object with subsequent fall, initial encounter; Y92.71 Barn as the place of occurrence of the external cause; Y99.8 Other external cause status; E83.51 Hypocalcemia; R41.0 Disorientation, unspecified; D64.9 Anemia, unspecified; M51.36 Other intervertebral disc degeneration, lumbar region; Z20.822 Contact with and (suspected) exposure to COVID-19; Z79.899 Other long term (current) drug therapy

== ENCOUNTER → 2021-06-18 | Outpatient (CLI) | payer MEDICARE ==
[~2021-06-18] MED LIST: ACET1TAB55 PO; ASCO100013 PO; ASPI-551 PO; COQ1100C5 PO; D3 H10002 PO; OYST1TAB PO; [UNRECOGNIZED DRUG - CODE] PO
--- NOTE | 2021-06-18 11:04 | REP ---
INDICATION: RT FEMUR. COMPARISON: 06/01/2021 TECHNIQUE: AP and frog-lateral views of the right femur. FINDINGS: Stable appearance to the patient's proximal femur fracture with orthopedic hardware in stable position. No new acute process identified. IMPRESSION: Stable examination when compared to 06/01/2021. <Electronically signed by Kristopher Roberson > 06/18/21 [id number]
== END ==
LOC: M SOG 09:37
PROVIDERS: ATTEND Orthopaedic Surgery Adult Reconstructive Orthopaedic Surgery
DX: S72.001A Fracture of unspecified part of neck of right femur, initial encounter for closed fracture (principal)

== ENCOUNTER → 2021-07-10 | Outpatient (REF) | payer MEDICARE | LOC: M LAB REF 11:37 | PROVIDERS: ATTEND Internal Medicine | DX: N18.30 Chronic kidney disease, stage 3 unspecified (principal) ==

== ENCOUNTER → 2021-07-17 | Outpatient (CLI) | payer MEDICARE ==
--- NOTE | 2021-07-17 10:41 | REP ---
INDICATION: RT FEMUR FX. COMPARISON: Multiple the latest 06/18/2021 TECHNIQUE: AP and lateral views FINDINGS: Previously described proximal femoral fracture is seen with indistinct margins consistent with increased callus formation from healing. The leg screw and intramedullary meeta are unchanged. There are no acute abnormalities. IMPRESSION: Healing fracture <Electronically signed by Brian Wheat > 07/17/21 [id number]
== END ==
LOC: M SOG 08:01
PROVIDERS: ATTEND Orthopaedic Surgery Adult Reconstructive Orthopaedic Surgery
DX: S72.001D Fracture of unspecified part of neck of right femur, subsequent encounter for closed fracture with routine healing (principal); Y92.9 Unspecified place or not applicable; Y93.9 Activity, unspecified; Y99.9 Unspecified external cause status

== ENCOUNTER → 2021-07-22 | Outpatient (CLI) | payer MEDICARE ==
--- NOTE | 2021-07-22 17:06 | DEXAMM ---
INDICATION: OTHER DISORDER BONE DENSITY AND STRUCTURE UNSPEC. COMPARISON: 02/14/2015 as well as other prior exams. TECHNIQUE: Bone density was measured using dual-energy x-ray absorptiometry (DEXA). FINDINGS: AP SPINE L1-L4 BMD 1.207 g/cm2 Young Adult T-Score 0.1 Age Matched Z-Score 1.9. LT FEMUR, TOTAL BMD 0.847 g/cm2 Young Adult T-Score -1.3 Age Matched Z-Score 0.7. LT NECK BMD 0.824 g/cm2 Young Adult T-Score -1.5 Age Matched Z-Score 0.6. IMPRESSION: There is normal bone density of the spine. There is low bone density of the left hip. The density of the spine has increased 0.3% since the initial exam on 08/18/2000. The density of the spine increased 6.3% since most recent exam on 02/14/2015. The density of the left hip has decreased 24.6% since initial exam on 08/18/2000. The density of the left hip has decreased 12.2% since most recent exam on 02/14/2015. FOLLOW-UP: Recommendation for the next bone density exam: 2 years. <Electronically signed by Timoteo Bhatt > 07/22/21 [id number]
== END ==
LOC: M WHC 13:57
PROVIDERS: ATTEND Internal Medicine
DX: M85.852 Other specified disorders of bone density and structure, left thigh (principal)

== ENCOUNTER → 2021-09-16 | Outpatient (CLI) | payer MEDICARE ==
--- NOTE | 2021-09-16 10:26 | REP ---
INDICATION: RT FEMUR FX. COMPARISON: 07/17/2021 TECHNIQUE: Single AP pelvis FINDINGS: There is increased callus formation surrounding the fracture fragments of the proximal right femur. There is otherwise no change. IMPRESSION: As above <Electronically signed by Brian Wheat > 09/16/21 [id number]
== END ==
LOC: M SOG 10:01
PROVIDERS: ATTEND Orthopaedic Surgery Adult Reconstructive Orthopaedic Surgery
DX: S72.001D Fracture of unspecified part of neck of right femur, subsequent encounter for closed fracture with routine healing (principal); Y92.9 Unspecified place or not applicable; Y93.9 Activity, unspecified; Y99.9 Unspecified external cause status